=== PATIENT | female | born 1960 | race Caucasian/White ===

== ENCOUNTER 2020-12-04 14:08 | Emergency (ER) | payer OTHER ==
[~2020-12-04] VITALS: Ht 165.1 cm; Wt 70.3 kg
== END 2020-12-04 15:48 | disposition home or self-care (01) ==
LOC: ER 14:08
DX: T21.5 Corrosion of first degree of trunk (principal); B37.2 Candidiasis of skin and nail; Y92.89 Other specified places as the place of occurrence of the external cause